=== PATIENT | female | born 1980 | race Caucasian/White ===

== ENCOUNTER 2019-04-24 08:30 | Outpatient (RCR) | payer BC ==
[2012-01-25 04:33] VITALS: BP 116/59
[~2019-04-24 08:30] MED LIST: NEURONTIN300 MG; NORCO 325 MG-51 TA1 PO; PRILOSEC 20MG20 MG; ZANTAC150 M1 PO; ZOLOFT 50MG50 MG PO; ZOLOFT100 MG
== END 2019-04-24 09:00 | disposition still patient (30) ==
LOC: OT 08:30
DX: G56.03 Carpal tunnel syndrome, bilateral upper limbs (principal)

== ENCOUNTER 2020-04-12 08:00 | Outpatient (RCR) | payer BC ==
[2012-01-25 04:33] VITALS: BP 116/59
== END 2020-04-12 08:30 | disposition still patient (30) ==
LOC: OT 08:00
DX: Z47.89 Encounter for other orthopedic aftercare (principal); Z96.691 Finger-joint replacement of right hand

== ENCOUNTER 2020-05-03 08:15 | Outpatient (RCR) | payer BC ==
[2012-01-25 04:33] VITALS: BP 116/59
== END 2020-05-03 09:00 | disposition still patient (30) ==
LOC: OT 08:15
DX: Z48.89 Encounter for other specified surgical aftercare (principal); Z96.639 Presence of unspecified artificial wrist joint